=== PATIENT | female | born 1975 | race Caucasian/White ===

== ENCOUNTER 2023-01-01 10:57 | Emergency (ER) | payer BC, SELFPAY ==
--- NOTE | ~2023-01-01 | XR_ITS ---
EXAMINATION: XR chest 2V DATE: 01/01/2023 11:43 INDICATION: Fever TECHNIQUE: PA and lateral views of the chest were obtained. COMPARISON: None FINDINGS: Mild opacities at the left lung base and favor atelectasis over pneumonia. No pulmonary edema, pleura l effusion or pneumothorax. The cardiomediastinal silhouette is normal. Mild to moderate thoracic spo ndylosis. IMPRESSION: 1. Mild left basilar opacities and favor atelectasis over pneumonia. Reviewed, dictated and finalized at location A.
[2023-01-01 11:03] VITALS: BP 153/96; PULSE 123; RESP 16; TEMP 37.3; O2SAT 98
[2023-01-01 11:10] VITALS: BP 127/92; PULSE 111; RESP 20; TEMP 36.9; O2SAT 99
[2023-01-01 12:16] LABS: Basophils Absolute Auto 0.1 K/mm3 (0.0-0.1); Basophils Percent Auto 0.6 % (0.2-1.2); Eosinophils Absolute Auto 0.2 K/mm3 (0-0.3); Eosinophils Percent Auto 0.9 % (0-4.4); Hematocrit 40.8 % (37.0-47.0); Hemoglobin 13.1 g/dL (12.0-15.0); Immature Granulocyte Absolute 0.09 K/mm3 (0.00-0.031); Immature Granulocyte Percent A 0.5 % (0-0.5); Lymphocytes Percent Auto 16.5 % (18.3-44.2); Mean Corpuscular HGB Conc 32.1 g/dl (32-36); Mean Corpuscular Hemoglobin 27.2 pg (26-34); Mean Corpuscular Volume 84.6 fl (80-100); Mean Platelet Volume 8.9 fl (7.4-10.4); Monocytes Absolute Auto 0.6 K/mm3 (0.1-0.6); Monocytes Percent Auto 3.1 % (2.6-8.5); Neutrophils Absolute Auto 13.8 K/mm3 (1.3-6.7); Neutrophils Percent Auto 78.4 % (45.5-73.1); Platelet Count Result 538 k/mm3 (150-375); Red Blood Count 4.82 M/mm3 (4.2-5.4); Red Cell Distribution Width 14.6 % (11.5-14.5); White Blood Count 17.6 K/mm3 (4.5-10.0)
[2023-01-01 12:26] LABS: Alanine Aminotransferase 30 U/L (6-35); Albumin Level 4.4 g/dL (3.5-5.1); Alkaline Phosphatase 86 U/L (38-126); Anion Gap 13 mmol/L (8-16); Aspartate Amino Transferase 23 U/L (14-36); Bilirubin,Total 0.4 mg/dL (0.2-1.3); Blood Urea Nitrogen 16 mg/dL (7-17); Calcium 9.1 mg/dL (8.4-10.2); Carbon Dioxide 25 mmol/L (22-30); Chloride 99 mmol/L (98-107); Estimated CRCL calculation 79 ml/min; Estimated Glomerular Filt Rate > 60; Glucose 237 mg/dL (65-110); Sodium 137 mmol/L (137-145)
[2023-01-01 12:40] LABS: Appearance Urine Clear (Clear); Bacteria Urine None Seen /hpf; Bilirubin Urine Negative (Negative); Blood Urine 3+ (Negative); Color Urine Yellow (Yellow); Glucose Urine UA Trace mg/dL (Negative); Ketones Urine Negative (Negative); Leukocyte Esterase Ur 3+ LEU/UL (Negative); Nitrate Urine Negative (Negative); Non Pathogenic Casts 0-2; Protein Urine Negative (Negative); RBC Urine 0-2 /hpf (0-2); Specific Grav Ur 1.007 (1.001-1.035); Squamous Epithelial Cell Urine Few /hpf (Few); Urobilinogen Urine 0.2 mg/dL (<2.0)
[2023-01-01 12:41] VITALS: BP 122/80; PULSE 105; RESP 20; TEMP 37.1; O2SAT 98
[2023-01-01] MEDS: SODIUM CHLORIDE 0.9% IV 1,000 ML 999 ML IV CONT (12:50)
[2023-01-01 12:56] LABS: Influenza A QL RT-PCR Negative (Negative); Influenza B QL RT-PCR Negative (Negative); SARS-CoV-2 RNA PCR Negative (Negative)
[2023-01-01 13:23] LABS: Add Urine Microscopic? YES
--- NOTE | 2023-01-01 13:29 | ED.GENADULT ---
HPI - General Adult General Chief complaint: Fever Stated complaint: sent by [place] for clearance-fever Time Seen by Provider: 01/01/23 12:03 History of Present Illness HPI narrative: This is a 47-year-old female, with past history of elevated white blood cell count of unknown origin, who was advised to come to the emergency department for an elevated temperature. The patient states she was released from [facility] today and was outside in the heat, on arrival to a [facility] she was found to be febrile to the low 100s. The patient has no complaints repeat temperature in the emergency department was afebrile. Related Data Allergies Allergy/AdvReac Type Severity Reaction Status Date / Time No Known Allergies Allergy Verified 01/01/23 10:58 Review of Systems Review of Systems: CONSTITUTIONAL: Denies fever, chills, or sweats. CARDIOVASCULAR: Denies chest pain, palpitations, or edema. RESPIRATORY: Denies cough or dyspnea. GASTROINTESTINAL: Denies abdominal pain, nausea, vomiting, or diarrhea. GENITOURINARY: Denies dysuria or hematuria. SKIN: Denies rash or itching. MUSCULOSKELETAL: Denies back pain, joint pain, or myalgia. NEUROLOGIC: Denies headache, numbness, dizziness, or weakness. PSYCHIATRIC: Denies anxiety or depression. PMFSH Past Medical History Medical History History of intravenous drug use in remission Surgical History Surgical History (Updated 01/01/23 @ 22:36 by Anselmo Witt MD) No significant past surgical history Social History Social History (Updated 01/01/23 @ 22:36 by Anselmo Witt MD) Smoking status: Current every day smoker Alcohol intake: former Substance use: former Last use: 30 days ago Exam Narrative: GENERAL: Well-developed, well-nourished, and in no acute distress. HEAD: Normocephalic, atraumatic. EYES: PERRLA and EOMI. ENT: Nares clear, no rhinorrhea or epistaxis. Mucous membranes moist. Oropharynx without tonsillar hypertrophy exudate or other lesions. NECK: Supple. No adenopathy or masses. No JVD CHEST: Clear to auscultation. No respiratory distress. No wheezes rales or rhonchi HEART: Regular rate and rhythm. No murmur heard. Normal peripheral pulses. ABDOMEN: Soft, nontender, nondistended, normal active bowel sounds. EXTREMITIES: Normal range of motion. No edema. SKIN: Warm, dry, no rash. NEURO: No focal deficits. Alert and oriented x3. PSYCH: Normal mood and affect. Course Course Emergency Course: 13:32 - Chemistries demonstrate an elevated lactic acid of 3.0. CBC demonstrates elevated white blood cell count of 17.6 and this is reportedly normal for the patient. UA demonstrates white blood cells and leukocyte esterase but is not otherwise concerning for UTI. Patient tested negative for influenza and flu. In the absence of concerning symptoms and recent history of acute exposure, I suspect the patient's elevated temperature and elevated lactic acid are related to dehydration. She was given IV fluids with improvement. I recommended follow-up with her primary care provider. Discussed return and emergency precautions including signs/symptoms of ACS and respiratory distress. The patient voiced understanding and is comfortable with the plan. All questions answered to her satisfaction. Vital Signs Vital signs: Vital Signs Temperature 99.1 F 01/01/23 11:03 Pulse Rate 123 H 01/01/23 11:03 Respiratory Rate 16 01/01/23 11:03 Blood Pressure 153/96 H 01/01/23 11:03 Pulse Oximetry 98 01/01/23 11:03 Oxygen Delivery Room Air 01/01/23 11:03 Temperature 98.8 F 01/01/23 12:41 Pulse Rate 98 01/01/23 13:43 Respiratory Rate 20 01/01/23 13:43 Blood Pressure 122/80 01/01/23 12:41 Pulse Oximetry 98 01/01/23 13:43 Oxygen Delivery Room Air 01/01/23 11:10 Medical Decision Making MDM Narrative Medical decision making narrative: Plan: Labs, IV fluids, test, reassess Differential Diagnosis Differential D
[2023-01-01 13:43] VITALS: PULSE 98; RESP 20; O2SAT 98
[2023-01-01 15:13] LABS: Reflex Lactic Acid Yes or No Add Lactic
== END 2023-01-01 13:45 | disposition home or self-care (01) ==
LOC: ANHED 15:21
PROVIDERS: General Practice; Emergency Provider Preventive Medicine Aerospace Medicine; PCP Nurse Practitioner Family
DX: E86.0 Dehydration (principal); F17.200 Nicotine dependence, unspecified, uncomplicated; Z20.822 Contact with and (suspected) exposure to COVID-19
CPT/HCPCS: 36415; 71046; 80053; 81001; 81025; 83605; 85025; 87636; 96360; 99283; J7030